=== PATIENT | female | born 1980 | race Caucasian/White ===

== ENCOUNTER 2024-02-26 18:53 | Emergency (ER) | payer OTHER, SELFPAY ==
--- NOTE | 2024-02-26 19:01 | ED.ALCOHOL ---
HPI - Alcohol General Chief Complaint: ETOH/Substance Use Stated Complaint: ETOH History of Present Illness ED Provider: Drew HPI narrative: 43 y/o F patient; PMH alcohol use disorder; presents via [facility] with report of decreased responsiveness. The patient states she drank a bottle of wine today. The patient was found sitting on the floor of a bathroom. She states she just sat on the floor to talk to her son on the phone. she reports she walked to [employer] from her work at [employer]. She denies: nausea/vomiting, abdominal pain, chest pain, SOB, cough/congestion, syncope. She denies any recent trauma or injury. She reports she has been feeling more depressive feelings recently but denies suicidal or homicidal ideation. Related Data Allergies Allergy/AdvReac Type Severity Reaction Status Date / Time No Known Allergies Allergy Verified 02/26/24 19:15 Review of Systems Review of Systems: Yes all other systems are reviewed and are negative Neurologic: Denies Sensory deficit (Neuro) PENDING SALE TO [facility] Past Medical History Attestation statement: The following information was validated with the patient. Source: unable to obtain Social History Social History Advance Directives: No Advance Directives Information Provided: No Do you have a plan to hurt others: No Plan Physical Exam ED Vital Signs: Vital Signs - 24 hr 02/26/24 19:03 02/26/24 19:10 Temperature 98.4 F 98.4 F Pulse Rate 99 99 Respiratory Rate 18 18 Blood Pressure 128/83 128/83 Pulse Oximetry 94 94 Oxygen Delivery Method Room Air Room Air BMI result Body Mass Index 28.3 Patient is afebrile and hemodynamically stable. Const Other: Tearful but able to hold appropriate conversation General: cooperative Orientation/consciousness: patient oriented x3 HENMT Head: Yes normal to inspection and Yes atraumatic Eyes General: appearance normal, both eyes and all related structures Pupils: Equal, round and reactive pupils present EOM: EOMs intact bilaterally Neck Neck: Yes normal visual inspection, Yes full ROM, Yes supple and No tender Chest Chest palpation & inspection: normal inspection of the chest and normal palpation of entire chest wall Resp Effort & Inspection: normal respiratory effort, able to speak in complete sentences, no cough and no respiratory distress Auscultation: clear to auscultation bilaterally Cardio Rate: regular rate Rhythm: regular rhythm Peripheral pulses: Peripheral pulses 2+ throughout GI Inspection: Yes normal to inspection, No Abdominal wall edema and No distended Palpation (GI): Soft to palpation, not firm, nontender, no guarding and not rigid Auscultation: normal bowel sounds Back/Spine/Pelvis Back: No back tenderness Neuro General: patient oriented x3 Cranial nerves: Yes Equal, round and reactive pupils present Motor exam (neuro): 5/5 motor strength present throughout Sensory Exam: No Sensory deficit (Neuro) Course Course Course Narrative: Patient is afebrile and hemodynamically stable. Spoke with patient's Clark who is aware patient has a problem with alcohol. He feels comfortable with plan to pick her up and take her home. Plan: Discharge to home with PCP follow up Return precautions given Discharge Plan Discharge Clinical Impression: Alcoholic intoxication Patient Disposition: Home, Self-Care Instructions: Alcohol Intoxication (ED) Additional Instructions: As we discussed, you were seen today with alcohol intoxication. You denies suicidal or homicidal ideation. Please follow up with your PCP within the next 1 - 2 days to discuss your recent emergency department visit and for re-evaluation. Print Language: Citizen Of [place]
[2024-02-26 19:03] VITALS: BP 128/83; PULSE 99; RESP 18; TEMP 36.9; O2SAT 94
[2024-02-26 19:10] VITALS: BP 128/83; BP 168/88; PULSE 112; PULSE 99; RESP 18; TEMP 36.9; O2SAT 94; O2SAT 97; BMI 28.3
[2024-02-26 20:30] VITALS: BP 126/82; PULSE 86; RESP 16; TEMP 36.9; O2SAT 96
== END 2024-02-26 20:30 | disposition home or self-care (01) ==
PROVIDERS: Emergency Provider Emergency Medicine
DX: F10.129 Alcohol abuse with intoxication, unspecified (principal); Y90.9 Presence of alcohol in blood, level not specified; Z71.41 Alcohol abuse counseling and surveillance of alcoholic
CPT/HCPCS: 99283; 99284